=== PATIENT | female | born 1980 | race Caucasian/White ===

== ENCOUNTER 2017-08-06 06:54 | Day surgery (SDC) | payer BC ==
[~2017-08-06 06:54] MED LIST: Lactated Ringers 1,000 ML IV SCH; Lidocaine 1%/Sod Bicarbonate in NS 8.4% 1 ML Syringe IDERM PRN; Sodium Chloride 0.9% 10 ML Syringe FLUSH PRN
[2017-08-06] MEDS ORDERED: Lidocaine 1% 4 ML ONE (07:08)
[2017-08-06] MEDS ORDERED: Propofol 200 MG/20 ML SDV ONE ×3 (07:09→09:05)
[2017-08-06] MEDS ORDERED: fentaNYL 100 MCG/2 ML SDV ONE (07:09)
[2017-08-06] MEDS ORDERED: Midazolam 1 MG/ML 2 ML SDV ONE (07:09)
--- NOTE | 2017-08-06 07:33 | PCM.PREANE ---
Preanesthetic Assessment - Procedure Proposed Procedure: Diag egd and diag colonoscopy - Anesthesia/Transfusion/Family Hx Anesthesia History: Prior Anesthesia Without Reaction Transfusion History: No Prior Transfusion(s) - Review of Systems General: No Symptoms Pulmonary: Shortness of Breath, Cough (overexerted) Cardiovascular: Palpitations (butterflies- gets frequently- has been worked up) Gastrointestinal: No Symptoms Neurological: Seizure Other: Reports: Easy Bruising, Depression, Anxiety - Physical Assessment NPO Status Date: 08/05/17 NPO Status Time: 23:00 Pulse: 83 O2 Sat by Pulse Oximetry: 100 Respiratory Rate: 16 Blood Pressure: 108/67 Temperature: 96.4 F Height: 5 ft 8 in Weight: 88.4 kg ASA Class: 2 Mental Status: Alert & Oriented x3 Airway Class: Mallampati = 1 Dentition: Reports: Normal Dentition Thyro-Mental Finger Breadths: 3 Mouth Opening Finger Breadths: 3 ROM/Head Extension: Full Lungs: Clear to Auscultation, Normal Respiratory Effort Cardiovascular: Regular Rate, Regular Rhythm - Allergies Allergies/Adverse Reactions: Allergies Allergy/AdvReac Type Severity Reaction Status Date / Time aspirin Allergy Intermediate Hives Verified 06/09/13 16:47 morphine Allergy Intermediate Vomiting Verified 06/09/13 16:47 codeine Allergy Hives Unverified 06/17/13 13:19 - Blood Blood Available: No - Anesthesia Plan Beta Tyra: Propranolol Med Last Dose Date: 08/05/17 (takes at 9) Med Last Dose Time: 09:00 - Acknowledgements Anesthesia Type Planned: MAC Pt an Appropriate Candidate for the Planned Anesthesia: Yes Alternatives and Risks of Anesthesia Discussed w Pt/Guardian: Yes Pt/Guardian Understands and Agrees with Anesthesia Plan: Yes PreAnesthesia Questionnaire Cardiovascular History: Reports: SOB on Exertion, Other (See Below) ( palpitations- had workup) Gastrointestinal History: Reports: GERD Neurological History: Reports: Migraines, Seizure (doesn't know when had last one) Psychiatric History: Reports: Anxiety, Depression Endocrine/Metabolic History: Reports: None Oncologic (Cancer) History: Reports: None - Past Surgical History GI Surgical History: Reports: Appendectomy, Cholecystectomy Female Surgical History: Reports: Section, Hysterectomy - History Comment History Comment: inderal q day - SUBSTANCE USE Smoking Status *Q: Current Status Unknown (quit a couple weeks ago) Second Hand Smoke Exposure: Yes Days Per Week of Alcohol Use: 1 (social) Recreational Drug Use History: No - HOME MEDS Home Medications: Home Meds Amitriptyline [Elavil] 25 mg PO BEDTIME 06/09/13 [History] Estradiol 1 mg PO DAILY 06/09/13 [History] Hydrocodone/Acetaminophen [Hydrocodone-Acetaminophen 5-325] 1 tab PO Q12HR PRN 06/09/13 [History] levETIRAcetam [Keppra] 1,500 mg PO BID 06/09/13 [History] Estradiol [Estrace] 0.5 mg PO DAILY 06/17/13 [History] Gabapentin [Neurontin] 600 mg PO TID #25 tab 06/17/13 [Rx] Gabapentin [Neurontin] 600 mg PO TID #25 tab 06/17/13 [Rx] Hydrocodone/Acetaminophen [Vicodin 5-300 mg Tablet] 1 each PO 06/17/13 [History] Topiramate [Topamax] 50 mg PO 06/17/13 [History] levETIRAcetam [Keppra] 1,500 mg PO BID 06/17/13 [History] - CURRENT (IN HOUSE) MEDS Current Meds: Current Medications Lactated Ringer's (Ringers, Lactated) 1,000 mls @ 125 mls/hr IV ASDIRECTED MARIA TERESA Lidocaine/Sodium Bicarbonate (Buffered Lidocaine 1% In Ns 8.4%) 0.25 ml IDERM ONETIME PRN PRN Reason: Prior to IV Start Sodium Chloride (Saline Flush) 10 ml FLUSH ASDIRECTED PRN PRN Reason: Keep Vein Open Discontinued Medications Fentanyl (Sublimaze) Confirm Administered Dose 100 mcg .ROUTE .STK-MED ONE Stop: 08/06/17 07:10 Lidocaine HCl (Xylocaine-Mpf 1%) Confirm Administered Dose 4 mls @ as directed .ROUTE .STK-MED ONE Stop: 08/06/17 07:09 Midazolam HCl (Versed 1 Mg/Ml) Confirm Administered Dose 2 mg .ROUTE .STK-MED ONE Stop: 08/06/17 07:10 Propofol (Diprivan 20 Ml) Confirm Administered Dose 200 mg .ROUTE .STK-MED ONE Stop: 08/06/17 07:10
--- NOTE | 2017-08-06 09:20 | PCM48HPAN ---
Post Anesthesia Note - EVALUATION WITHIN 48HRS OF ANESTHETIC Vital Signs in Normal Range: Yes Patient Participated in Evaluation: Yes Respiratory Function Stable: Yes Airway Patent: Yes Cardiovascular Function Stable: Yes Hydration Status Stable: Yes Pain Control Satisfactory: Yes Nausea and Vomiting Control Satisfactory: Yes Mental Status Recovered: Yes Pulse Rate: 100 SaO2: 96 Resp Rate: 16 Temperature: 97.3 F Blood Pressure: 101/60
--- NOTE | 2017-08-06 09:21 | PCM.OPNOTE ---
- General Post-Op/Procedure Note Date of Surgery/Procedure: 08/06/17 Operative Procedure(s): EGD with bx /colonoscopy Pre Op Diagnosis: rectal bleeding/epigasric pain Post-Op Diagnosis: Same Anesthesia Technique: MAC Primary Surgeon: Saravanan Nieves EBL in mLs: 0 Complications: None Condition: Good
--- NOTE | 2017-08-06 15:16 | OR ---
DATE OF OPERATION: 08/06/2017 SURGEON: Saravanan Nieves MD PREOPERATIVE DIAGNOSIS: Gastroesophageal reflux disease. POSTOPERATIVE DIAGNOSIS: Gastroesophageal reflux disease. OPERATION PERFORMED: Esophagogastroduodenoscopy with biopsy. FINDINGS: Normal second portion of the duodenum, duodenal bulb, pyloric channel, antrum, body, and cardia of the stomach did not show any pathology. The GE junction was located at 40 cm and was sharp. The rest of the esophagus did not show any pathology. J-maneuver showed intact hiatus and the fundus and body of the stomach unremarkable. ANESTHESIA: Procedure EGD with biopsy done under IV sedation. DESCRIPTION OF PROCEDURE: The patient was taken to the endoscopy room, placed in a supine position, connected to monitoring equipment, given IV sedation, placed in left lateral position with a bite-block inserted, and video Olympus gastroscope placed in the posterior oropharynx, under direct vision threaded past the cricopharyngeus, down the esophagus, into the stomach. Stomach was insufflated, and the scope passed through the pylorus to the second portion of the duodenum, was slowly withdrawn showing normal second portion of the duodenum, duodenal bulb, pyloric channel. Antrum, body, and cardia of stomach were viewed. J-maneuver was performed. There was a gastric pool noted with some portions of the stomach obscure. The fundus was unremarkable as was the hiatus and body. Most of the body of the stomach and antrum were viewed, were normal. Biopsies of the antrum were done looking for H. pylori. Scope withdrawn at the GE junction, which was sharp, did not show any pathology and was located at 40 cm, and the rest of the esophagus was viewed as the scope withdrawn, it was normal. The patient tolerated the procedure. Biopsy sent to pathology in a labeled container and patient's IV sedation continued for colonoscopy. ESTIMATED BLOOD LOSS: MMODAL /[id number]
--- NOTE | 2017-08-07 08:18 | OR ---
DATE OF OPERATION: 08/06/2017 SURGEON: Saravanan Nieves MD PREOPERATIVE DIAGNOSIS: Rectal bleeding. POSTOPERATIVE DIAGNOSIS: Rectal bleeding. OPERATION PERFORMED: Colonoscopy to the cecum. FINDINGS: Mild internal hemorrhoids. There were no angiodysplasias, neoplasias, large tumor masses, or ulcerations. ANESTHESIA: Procedure done under IV sedation, colonoscopy to the cecum. The prep was poor with particulate matter in the right colon obscuring the clear view of the mucosa and could not be entirely aspirated. It was [place] Cle[employer] Score grade C. DESCRIPTION OF PROCEDURE: The patient was taken to the endoscopy room and having been connected to oximeter, automatic blood pressure cuff, manager monitoring, and IV. An IV having been given for upper GI endoscopy. This was continued for colonoscopy. She was placed in the left lateral position. Perianal area showed a few hemorrhoidal tags. Rectal exam showed good sphincter tone. A video Olympus colonoscope was then introduced into the rectum and threaded up without problem to the cecum, where the prep was poor and only the thickening of the ileum could be clearly seen as identifying the area as cecum. The area was irrigated out as best as could and aspirated where possible, and the scope was then slowly withdrawn showing the cecum, ascending colon, transverse colon, descending colon, sigmoid colon, and rectum. Retroflexed view was done. Good view was obtained of the proximal or the distal transverse colon, descending colon, and areas of the sigmoid colon and right colon were obscured and the rectum was clearly seen. The patient tolerated the procedure, sent to recovery room in a stable condition to be followed up in the clinic. ESTIMATED BLOOD LOSS: MMODAL /[id number]
== END 2017-08-06 10:05 | disposition home or self-care (01) ==
LOC: JD.SDS 06:54
PROVIDERS: ATTEND Surgery
DX: K62.5 Hemorrhage of anus and rectum (principal); K21.9 Gastro-esophageal reflux disease without esophagitis; K29.50 Unspecified chronic gastritis without bleeding; F41.9 Anxiety disorder, unspecified; F32.9 Major depressive disorder, single episode, unspecified; Z87.891 Personal history of nicotine dependence; Z79.899 Other long term (current) drug therapy; Z88.6 Allergy status to analgesic agent; Z88.5 Allergy status to narcotic agent
CPT/HCPCS: 43239; 45378; J2001; J2250; J3010; J7120; J2704